=== PATIENT | female | born 1985 | race Two or more races ===

== ENCOUNTER 2020-06-22 10:03 | Emergency (ER) | payer OTHER ==
[2020-06-22] MEDS ORDERED: Sodium Chloride 0.9% 1,000 ML IV ONE (10:35)
[2020-06-22] MEDS ORDERED: Ondansetron 4 MG/2 ML SDV IVPUSH ONE (10:35)
--- NOTE | 2020-06-22 10:49 | EDM.PDOC ---
ED HPI GENERAL MEDICAL PROBLEM - General Chief Complaint: ENT Problem Stated Complaint: DIZZY, TOOTH PAIN, NAUSEA Time Seen by Provider: 06/22/20 10:06 Source of Information: Reports: Patient History Limitations: Reports: No Limitations - History of Present Illness INITIAL COMMENTS - FREE TEXT/NARRATIVE: HISTORY AND PHYSICAL: History of present illness: Patient is a 34-year-old female who presents to the ED today via EMS with concern of dizziness, 2-3 episodes of vomiting since 4 AM, and right lower tooth pain. Patient states she has had pain of her lower tooth since September of this year. Patient states that she just moved to [place] and was supposed to have an appointment with her dentist back home in [place] but due to Covid was pushed back and then patient moved to [place] so has not seen a dentist since being here. Patient states at 4 AM she woke up with the tooth pain so took 2 g of Tylenol for the pain. Patient states about an hour later she began to feel dizzy and has had 2-3 episodes of vomiting. Patient states her last episode of vomiting was just prior to arrival to the ED. Patient states since being here she is feeling better but is still having the tooth pain that radiates into her right ear. Denies any health history or any other symptoms or concerns. Patient denies fever, chills, chest pain, shortness of breath, or cough. Denies headache, neck stiff ness, change in vision, syncope, or near syncope. Denies abdominal pain, diarrhea, constipation, or dysuria. Has not noted any blood in urine or stool. Patient has been eating and drinking appropriately. Review of systems: As per history of present illness and below otherwise all systems reviewed and negative. Past medical history: As per history of present illness and as reviewed below otherwise noncontributory. Surgical history: As per history of present illness and as reviewed below otherwise noncontributory. Social history: See social history for further information Family history: As per history of present illness and as reviewed below otherwise noncontributory. Physical exam: General: Patient is alert, oriented, and in no acute distress. Patient sitting comfortably on exam table. Vitals stable and reviewed by me. HEENT: Tooth number 31 is fractured with pain to palpation of the tooth without evidence of surrounding abscess. There is no edema adjacent to the tooth or any facial edema. Otherwise, atraumatic, normocephalic, pupils equal and reactive bilaterally, negative for conjunctival pallor or scleral icterus, mucous membranes moist, TMs normal bilaterally, throat clear, neck supple, nontender, trachea midline. No drooling or trismus noted. No meningeal signs. No hot potato voice noted. Lungs: Clear to auscultation, breath sounds equal bilaterally, chest nontender. Heart: S1S2, regular rate and rhythm without overt murmur Abdomen: Soft, nondistended, nontender. Negative for masses or hepatosplenomegaly. Negative for costovertebral tenderness. Pelvis: Stable nontender. Genitourinary: Deferred. Rectal: Deferred. Skin: Intact, warm, dry. No lesions or rashes noted. Extremities: Atraumatic, negative for cords or calf pain. Neurovascular unremarkable. Neuro: Awake, alert, oriented. Cranial nerves II through XII unremarkable. Cerebellum unremarkable. Motor and sensory unremarkable throughout. Exam nonfocal. Notes: Patient has not had any episodes of vomiting today in the ED and has been able to tolerate p.o. intake in the ED. Patient expresses resolution of symptoms today in the ED. Signs and symptoms that would prompt return to the ED thoroughly discussed with patient. Discussed importance for follow-up with a dentist and a primary care provider. Voices understanding and is agreeable to plan of care. Denies any further que stions or concerns at this time. Diagnostics: EKG, CBC, CMP, UA, hcg, lipase, trop, CXR Therapeutics: NS, Zofran Prescription: Diclofenac, Clindamycin, Tramadol (#15), Zofran Impression: Tooth fracture Dizziness, resolved Plan: 1. Please take medication as prescribed. 2. Tylenol as needed for back pain. Otherwise, take the prescribed tramadol and diclofenac as directed. Diclofenac as an anti-inflammatory medication so do not take any additional NSAIDs with this medication, such as naproxen, ibuprofen, or Aleve. Tramadol, this medication may cause drowsiness, so do not take it while driving or needing to be functioning outside of the home. 3. "Tooth Balls" have been given to you; apply along the gumline every 2-3 hours as needed. Do not swallow these; external use only. 4. Follow-up with a dentist and your primary care provider for definitive care. Return to the ED as needed and as discussed. Definitive disposition and diagnosis as appropriate pending reevaluation and review of above. 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 ED EXAM, GENERAL - Physical Exam Exam: See Below (see dictation) Course - Vital Signs Last Recorded V/S: Last Vital Signs Temp 97 F 06/22/20 10:06 Pulse 76 06/22/20 10:06 Resp 16 06/22/20 10:06 BP 114/83 06/22/20 10:06 Pulse Ox 96 06/22/20 10:06 Orthostatic Blood Pressure [ 114/78 Standing] Orthostatic Blood Pressure [ 110/82 Sitting] - Orders/Labs/Meds Labs: Laboratory Tests 06/22/20 06/22/20 06/22/20 Range/Units 11:16 11:16 11:16 WBC 9.27 (4.0-11.0) K/uL RBC 4.38 (4.30-5.90) M/uL Hgb 12.3 (12.0-16.0) g/dL Hct 39.0 (36.0-46.0) % MCV 89.0 (80.0-98.0) fL MCH 28.1 (27.0-32.0) pg MCHC 31.5 (31.0-37.0) g/dL RDW Std Deviation 49.9 (28.0-62.0) fl RDW Coeff of Anselmo 16 H (11.0-15.0) % Plt Count 280 (150-400) K/uL MPV 10.50 (7.40-12.00) fL Neut % (Auto) 64.6 (48.0-80.0) % Lymph % (Auto) 27.0 (16.0-40.0) % Laurel % (Auto) 7.4 (0.0-15.0) % Eos % (Auto) 0.5 (0.0-7.0) % Baso % (Auto) 0.5 (0.0-1.5) % Neut # (Auto) 6.0 H (1.4-5.7) K/uL Lymph # (Auto) 2.5 H (0.6-2.4) K/uL Laurel # (Auto) 0.7 (0.0-0.8) K/uL Eos # (Auto) 0.1 (0.0-0.7) K/uL Baso # (Auto) 0.1 (0.0-0.1) K/uL Nucleated RBC % 0.0 /100WBC Nucleated RBCs # 0 K/uL Sodium 141 (136-145) mmol/L Potassium 4.0 (3.5-5.1) mmol/L Chloride 106 (98-107) mmol/L Carbon Dioxide 28.7 (21.0-32.0) mmol/L BUN 9 (7.0-18.0) mg/dL Creatinine 0.7 (0.6-1.0) mg/dL Est Cr Clr Drug Dosing 94.56 mL/min Estimated GFR (MDRD) > 60.0 ml/min Glucose 98 (74-106) mg/dL Calcium 8.8 (8.5-10.1) mg/dL Total Bilirubin 0.3 (0.2-1.0) mg/dL AST 19 (15-37) IU/L ALT 22 (14-63) IU/L Alkaline Phosphatase 53 (46-116) U/L Troponin I < 0.050 (0.000-0.056) ng/mL Total Protein 6.9 (6.4-8.2) g/dL Albumin 3.8 (3.4-5.0) g/dL Globulin 3.1 (2.6-4.0) g/dL Albumin/Globulin Ratio 1.2 (0.9-1.6) Lipase (73-393) U/L HCG, Qual NEGATIVE (NEG) Urine Color Urine Appearance Urine pH (5.0-8.0) Ur Specific [place] (1.001-1.035) Urine Protein (NEGATIVE) mg/dL Urine Glucose (UA) (NEGATIVE) mg/dL Urine Ketones (NEGATIVE) mg/dL Urine Occult Blood (NEGATIVE) Urine Nitrite (NEGATIVE) Urine Bilirubin (NEGATIVE) Urine Urobilinogen (<2.0) EU/dL Ur Leukocyte Esterase (NEGATIVE) 06/22/20 06/22/20 Range/Units 11:16 11:57 WBC (4.0-11.0) K/uL RBC (4.30-5.90) M/uL Hgb (12.0-16.0) g/dL Hct (36.0-46.0) % MCV (80.0-98.0) fL MCH (27.0-32.0) pg MCHC (31.0-37.0) g/dL RDW Std Deviation (28.0-62.0) fl RDW Coeff of Anselmo (11.0-15.0) % Plt Count (150-400) K/uL MPV (7.40-12.00) fL Neut % (Auto) (48.0-80.0) % Lymph % (Auto) (16.0-40.0) % Laurel % (Auto) (0.0-15.0) % Eos % (Auto) (0.0-7.0) % Baso % (Auto) (0.0-1.5) % Neut # (Auto) (1.4-5.7) K/uL Lymph # (Auto) (0.6-2.4) K/uL Laurel # (Auto) (0.0-0.8) K/uL Eos # (Auto) (0.0-0.7) K/uL Baso # (Auto) (0.0-0.1) K/uL Nucleated RBC % /100WBC Nucleated RBCs # K/uL Sodium (136-145) mmol/L Potassium (3.5-5.1) mmol/L Chloride (98-107) mmol/L Carbon Dioxide (21.0-32.0) mmol/L BUN (7.0-18.0) mg/dL Creatinine (0.6-1.0) mg/dL Est Cr Clr Drug Dosing mL/min Estimated GFR (MDRD) ml/min Glucose (74-106) mg/dL Calcium (8.5-10.1) mg/dL Total Bilirubin (0.2-1.0) mg/dL AST (15-37) IU/L ALT (14-63) IU/L Alkaline Phosphatase (46-116) U/L Troponin I (0.000-0.056) ng/mL Total Protein (6.4-8.2) g/dL Albumin (3.4-5.0) g/dL Globulin (2.6-4.0) g/dL Albumin/Globulin Ratio (0.9-1.6) Lipase 110 (73-393) U/L HCG, Qual (NEG) Urine Color YELLOW Urine Appearance SLT CLOUDY Urine pH 8.0 (5.0-8.0) Ur Specific [place] 1.020 (1.001-1.035) Urine Protein NEGATIVE (NEGATIVE) mg/dL Urine Glucose (UA) NEGATIVE (NEGATIVE) mg/dL Urine Ketones NEGATIVE (NEGATIVE) mg/dL Urine Occult Blood NEGATIVE (NEGATIVE) Urine Nitrite NEGATIVE (NEGATIVE) Urine Bilirubin NEGATIVE (NEGATIVE) Urine Urobilinogen 0.2 (<2.0) EU/dL Ur Leukocyte Esterase NEGATIVE (NEGATIVE) Meds: Medications Discontinued Medications Generic Name Dose Route Start Last Admin Trade Name Freq PRN Reason Stop Dose Admin Benzocaine 2 each 06/22/20 12:09 06/22/20 12:41 Hurricaine One 20% MUCMEM 06/22/20 12:10 2 each ONETIME ONE Administration Sodium Chloride 1,000 mls @ 999 mls/hr 06/22/20 10:35 06/22/20 11:17 Normal Saline IV 06/22/20 11:35 999 mls/hr STAT ONE Administration Ketorolac Tromethamine 30 mg 06/22/20 11:47 06/22/20 11:57 Toradol IVPUSH 06/22/20 11:48 30 mg ONETIME ONE Administration Lidocaine HCl 15 ml 06/22/20 12:09 06/22/20 12:41 Xylocaine 2% Viscous PO 06/22/20 12:10 15 ml ONETIME ONE Administration Ondansetron HCl 4 mg 06/22/20 10:35 06/22/20 11:17 Zofran IVPUSH 06/22/20 10:36 4 mg ONETIME ONE Administration Departure - Departure Time of Disposition: 12:48 Disposition: Home, Self-Care 01 Clinical Impression: Dizziness Tooth fracture Qualifiers: Encounter type: initial encounter Fracture type: closed Qualified Code(s): S02.5XXA - Fracture of tooth (traumatic), initial encounter for closed fracture - Discharge Information Prescriptions: Clindamycin HCl 300 mg PO TID 10 Days #30 capsule traMADol HCl [Tramadol HCl] 50 mg PO Q6H PRN #15 tablet PRN Reason: Pain (Severe 7-10) Diclofenac Sodium [Voltaren] 75 mg PO BIDMEALS PRN #15 tab.cr PRN Reason: Pain Ondansetron [Zofran ODT] 4 mg PO Q6H PRN #8 tab.dis PRN Reason: Nausea/Vomiting Instructions: Tooth Injuries, [id number] Referrals: PCP,None [Primary Care Provider] - Forms: ED Department Discharge Additional Instructions: The following information is given to patients seen in the emergency department who are being discharged to home. This information is to outline your options for follow-up care. We provide all patients seen in our emergency department with a follow-up referral. The need for follow-up, as well as the timing and circumstances, are variable depending upon the specifics of your emergency department visit. If you don't have a primary care physician on staff, we will provide you with a referral. We always advise you to contact your personal physician following an emergency department visit to inform them of the circumstance of the visit and for follow-up with them and/or the need for any referrals to a consulting specialist. The emergency department will also refer you to a specialist when appropriate. This referral assures that you have the opportunity for follow-up care with a specialist. All of these measure are taken in an effort to provide you with optimal care, which includes your follow-up. Under all circumstances we always encourage you to contact your private physician who remains a resource for coordinating your care. When calling for follow-up care, please make the office aware that this follow-up is from your recent emergency room visit. If for any reason you are refused follow-up, please contact the [facility] Emergency Department at and asked to speak to the emergency department charge nurse. [facility] [address] [place] [id number] [facility] [address] [place] [id number] 1. Please take medication as prescribed. 2. Tylenol as needed for back pain. Otherwise, take the prescribed tramadol and diclofenac as directed. Diclofenac as an anti-inflammatory medication so do not take any additional NSAIDs with this medication, such as naproxen, ibuprofen, or Aleve. Tramadol, this medication may cause drowsiness, so do not take it while driving or needing to be functioning outside of the home. 3. "Tooth Balls" have been given to you; apply along the gumline every 2-3 hours as needed. Do not swallow these; external use only. 4. Follow-up with a dentist and your primary care provider for definitive care. Return to the ED as needed and as discussed. Sepsis Event Note (ED) - Evaluation Sepsis Screening Result: No Definite Risk - Focused Exam Vital Signs: Vital Signs Temp Pulse Resp BP Pulse Ox 06/22/20 10:06 97 F 76 16 114/83 96
--- NOTE | 2020-06-22 11:15 | PCM.PRNOTE ---
- Free Text/Narrative Note: Time:111 Rate:69 Rhythm: sinus Intervals: normal ST-T wave: no acute changes Overall: normal sinus rhythm
[2020-06-22] MEDS ORDERED: Ketorolac 30 MG/ML SDV IVPUSH ONE (11:47)
[2020-06-22 11:51] LABS: BLOOD UREA NITROGEN,BUN 9 mg/dL (7.0-18.0); CARBON DIOXIDE,CO2 28.7 mmol/L (21.0-32.0); CHLORIDE,CL 106 mmol/L (98-107); GLUCOSE RANDOM 98 mg/dL (74-106); SODIUM,NA 141 mmol/L (136-145)
[2020-06-22] MEDS ORDERED: Lidocaine 2% Viscous Solution 15 ML Cup PO ONE (12:09)
[2020-06-22] MEDS ORDERED: Benzocaine 20% Topical Spray UD MUCMEM ONE (12:09)
--- NOTE | 2020-06-22 12:45 | CR ---
HISTORY: Dizziness. TECHNIQUE: One view chest. COMPARISON: No prior. FINDINGS: The cardiac size and pulmonary vasculature are within normal limits. There is no focal lung infiltrate or pulmonary edema. No pneumothorax or pleural effusion. No acute bony abnormality. IMPRESSION: No acute disease. Dictated by Darrell Forte MD @ 06/22/2020 12:43:11 PM Dictated by: Darrell Forte MD @ 06/22/2020 12:43:17 (Electronically Signed)
== END 2020-06-22 13:13 | disposition home or self-care (01) ==
LOC: MW.ED 10:03
DX: K03.81 Cracked tooth (principal); F17.210 Nicotine dependence, cigarettes, uncomplicated; Z88.0 Allergy status to penicillin
CPT/HCPCS: 71045; 80053; 81003; 83690; 84484; 84703; 85025; 93005; 96374; 96375; 99284; A9270; J1885; J2405; J7030; 93010; 99283

== ENCOUNTER 2020-09-16 16:20 | Emergency (ER) | payer OTHER ==
[2020-09-16] MEDS ORDERED: Ondansetron 4 MG Tab.DIS PO ONE (16:29)
[2020-09-16] MEDS ORDERED: traMADol 50 MG Tab PO ONE (16:29)
[2020-09-16] MEDS ORDERED: Diphtheria,Pertussis(Acell),Tetanus Vaccine 0.5 ML SDV IM ONE (16:29)
[2020-09-16] MEDS ORDERED: Bacitracin Oint 1 GM U/D Packet TOP ONE (16:31)
[2020-09-16] MEDS ORDERED: Morphine 4 MG/ML Syringe IM ONE (16:53)
--- NOTE | 2020-09-16 17:07 | EDM.PDOC ---
ED HPI GENERAL MEDICAL PROBLEM - General Chief Complaint: Skin Complaint Stated Complaint: RIGHT HAND POSSIBLE BURN Time Seen by Provider: 09/16/20 16:22 Source of Information: Reports: Patient History Limitations: Reports: No Limitations - History of Present Illness INITIAL COMMENTS - FREE TEXT/NARRATIVE: HISTORY AND PHYSICAL: History of present illness: Patient is a 35-year-old female who presents to the emergency room with complaints of a burn from candle wax on the right volar aspect of her hand, at the base of the first and second digit. Patient reports she was melting candle wax on the stove top when it fell onto her hand resulting in a burn. Patient denies any fever, chills, headache, change in vision, syncope or near syncope. Denies any chest pain, back pain, shortness of breath or cough. Denies any abdominal pain, nausea, vomiting, diarrhea, constipation or dysuria. Has not noted any blood in urine or stool. Patient has been eating and drinking appropriately. Review of systems: As per history of present illness and below otherwise all systems reviewed and negative. Past medical history: As per history of present illness and as reviewed below otherwise noncontributory. Surgical history: As per history of present illness and as reviewed below otherwise noncontributory. Social history: See social history for further information Family history: As per history of present illness and as reviewed below otherwise noncontributory. Physical exam: General: Well developed and well nourished 35 year old female. Alert and orientated x 3. Nontoxic in appearance and in no acute distress. Vital signs are stable and have been reviewed by me. Nursing notes were reviewed. HEENT: Atraumatic, normocephalic, pupils equal and reactive bilaterally, neg ative for conjunctival pallor or scleral icterus, mucous membranes moist, trachea midline. No drooling or trismus noted. No meningeal signs. No hot potato voice noted. Lungs: Clear to auscultation bilaterally. No wheezes, rales, or rhonchi. Normal work of breathing, no accessory muscles used. Heart: S1S2, regular rate and rhythm without overt murmur, gallops, or rubs. No JVD. No peripheral edema Abdomen: Soft, nondistended, nontender. Skin: Erythema noted to the base of her right thumb into the webspace and base of the right index finger. There is no blistering. The erythema is noncircumf erential. Remaining skin is intact, warm, dry. No lesions or rashes noted. Hematologic: No petechiae or purpra. Mucosa appropriate color and normal nail bed color and refill. Extremities: Atraumatic, moves all extremities per self without difficulty or deficits, negative for cords or calf pain. Neurovascular unremarkable. Neuro: Awake, alert, oriented. Cranial nerves II through XII unremarkable. Cerebellum unremarkable. Motor and sensory unremarkable throughout. Exam nonfocal. Psychiatric: Mood and affect are appropriate. Normal thought process. Answering questions appropriately. Notes: *This patient was seen and evaluated during the 2019 SARS-CoV-2 novel coronavirus pandemic period. Community viral transmission is ongoing at time of this encounter and the emergency department is operating under pandemic response procedures. Patient states she needs "something strong for the pain" and requesting narcotics. Seconds after receiving Morphine IM, she states her pain is gone. She allowed us to clean her skin and apply bacitracin dressing. Reassessment at the time of disposition demonstrates that the patient is in no acute distress. Her burn appears superficial, we discussed pain medications for home. She is disgruntled that she is not getting narcotics for home. Refused her Tdap. The patient is stable for discharge, counseling was provided and we discussed in great detail signs and symptoms that would prompt them to return to the Emergency Department. Medication, follow up and supportive care measures were reviewed and discussed. Denies any further questions or concerns at this time. Diagnostics: None Therapeutics: Morphine, Zofran Prescription: Diclofenac Impression: Burn, 1st degree Plan: 1. Keep the skin clean and dry. Wash gently with mild soap and water and apply bacitracin to the area 3-4 times daily. 2. You can alternate Tylenol and ibuprofen as needed for pain and fever management. 3. We encourage you to follow up with your General Surgeon or your Primary Care Provider in the next few days for re-evaluation and further care/management. 4. If your symptoms should worsen, new symptoms develop or any of the signs and symptoms we discussed should arise please return to the emergency room or call 911 (if needed). Definitive disposition and diagnosis as appropriate pending reevaluation and review of above. 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 ED EXAM, SKIN/RASH Exam: See Below (See dictation) Course - Vital Signs Last Recorded V/S: Last Vital Signs Temp 95.9 F L 09/16/20 16:30 Pulse 47 L 09/16/20 16:30 Resp 17 09/16/20 16:30 BP 130/75 09/16/20 16:30 Pulse Ox 97 09/16/20 16:30 - Orders/Labs/Meds Orders: Active Orders 24 hr Category Date Time Status Vaccines to be Administered [RC] PER UNIT ROUTINE Care 09/16/20 16:29 Active Meds: Medications Discontinued Medications Generic Name Dose Route Start Last Admin Trade Name Freq PRN Reason Stop Dose Admin Bacitracin 1 dose 09/16/20 16:31 09/16/20 16:58 Bacitracin Oint 1 Gm TOP 09/16/20 16:32 1 dose ONETIME ONE Administration Diphtheria/Tetanus/Acell Pertussis 0.5 ml 09/16/20 16:29 09/16/20 17:31 Boostrix IM 09/16/20 16:30 Not Given .ONCE ONE Diphtheria/Tetanus/Acell Pertussis Confirm 09/16/20 17:17 09/16/20 17:31 Boostrix Administered 09/16/20 17:18 Not Given Dose 0.5 ml .ROUTE .STK-MED ONE Morphine Sulfate 4 mg 09/16/20 16:53 09/16/20 16:58 Morphine IM 09/16/20 16:54 4 mg ONETIME ONE Administration Ondansetron HCl 4 mg 09/16/20 16:29 09/16/20 16:58 Zofran Odt PO 09/16/20 16:30 4 mg ONETIME ONE Administration Tramadol HCl 50 mg 09/16/20 16:29 09/16/20 17:00 Ultram PO 09/16/20 16:30 Not Given ONETIME ONE Departure - Departure Time of Disposition: 17:06 Disposition: Home, Self-Care 01 Clinical Impression: Burn - Discharge Information Prescriptions: Diclofenac Sodium [Voltaren] 50 mg PO BID PRN #20 tab.ec PRN Reason: Pain Instructions: Burn Care, Adult, [id number] Referrals: PCP,None [Primary Care Provider] - Forms: ED Department Discharge Additional Instructions: The following information is given to patients seen in the emergency department who are being discharged to home. This information is to outline your options for follow-up care. We provide all patients seen in our emergency department with a follow-up referral. The need for follow-up, as well as the timing and circumstances, are variable depending upon the specifics of your emergency department visit. If you don't have a primary care physician on staff, we will provide you with a referral. We always advise you to contact your personal physician following an emergency department visit to inform them of the circumstance of the visit and for follow-up with them and/or the need for any referrals to a consulting specialist. The emergency department will also refer you to a specialist when appropriate. This referral assures that you have the opportunity for follow-up care with a specialist. All of these measure are taken in an effort to provide you with optimal care, which includes your follow-up. Under all circumstances we always encourage you to contact your private physician who remains a resource for coordinating your care. When calling for follow-up care, please make the office aware that this follow-up is from your recent emergency room visit. If for any reason you are refused follow-up, please contact the [facility] Emergency Department at and asked to speak to the emergency department charge nurse. [facility] [address] [place] [id number] [id number] Thank you for choosing the [facility] emergency department in [place] for your medical needs today. It was a pleasure caring for you. Today you were seen in the emergency department for burn evaluation. 1. Keep the skin clean and dry. Wash gently with mild soap and water and apply bacitracin to the area 3-4 times daily over the next 1 week. 2. You can alternate Tylenol and ibuprofen as needed for pain and fever management. 3. We encourage you to follow up with your General Surgeon or your Primary Care Provider in the next few days for re-evaluation and further care/management. 4. If your symptoms should worsen, new symptoms develop or any of the signs and symptoms we discussed should arise please return to the emergency room or call 911 (if needed). Sepsis Event Note (ED) - Evaluation Sepsis Screening Result: No Definite Risk - Focused Exam Vital Signs: Vital Signs Temp Pulse Resp BP Pulse Ox 09/16/20 16:30 95.9 F L 47 L 17 130/75 97 - My Orders Last 24 Hours: My Active Orders 09/16/20 16:29 Vaccines to be Administered [RC] PER UNIT ROUTINE - Assessment/Plan Last 24 Hours: My Active Orders 09/16/20 16:29 Vaccines to be Administered [RC] PER UNIT ROUTINE
[2020-09-16] MEDS ORDERED: Diphtheria,Pertussis(Acell),Tetanus Vaccine 0.5 ML Syringe ONE (17:17)
== END 2020-09-16 17:36 | disposition home or self-care (01) ==
LOC: MW.ED 16:20
DX: T23.101A Burn of first degree of right hand, unspecified site, initial encounter (principal); X08.8XXA Exposure to other specified smoke, fire and flames, initial encounter
CPT/HCPCS: 96372; 99283; A9270; J2270